=== PATIENT | male | born 2000 | race American Indian/Alaskan Native ===

== ENCOUNTER 2022-04-04 15:01 | Emergency (ER) | payer BC ==
[2022-04-04] MEDS ORDERED: PHENYLEPHRINE 1 MG, SODIUM CHLORIDE P/F VIAL 10 ML 9.9 ML IJ**NOT IV ONE (15:18)
[2022-04-04] MEDS ORDERED: PSEUDOEPHEDRINE 30 MG TAB PO ONE (15:18)
[2022-04-04] MEDS ORDERED: TERBUTALINE 1 MG/1 ML INJ SUB-Q ONE (15:19)
[2022-04-04] MEDS ORDERED: MORPHINE 4 MG/1 ML INJ IV ONE (15:19)
[2022-04-04] MEDS ORDERED: ONDANSETRON 4 MG/2 ML INJ IV ONE (15:19)
--- NOTE | 2022-04-04 16:08 | Emergency Department Report ---
ED Female HPI - General Chief complaint: Abdominal Pain Stated complaint: ABDOMINAL PAIN Time Seen by Provider: 04/04/22 15:18 Source: patient Mode of arrival: Ambulatory Limitations: No Limitations - History of Present Illness Initial comments: 22-year-old male presents to the ED complaining penile erection since around 8 AM this morning. Patient states that around 6 AM this morning he awakened and started to masturbate after his girlfriend refused to have sex with him. Patient states that he went back to sleep and when he awakened he noticed that his penile was partially erect and and had not returned to normal. Patient states that he took a Percocet 10 mg for the pain that was 10 out of 10. Patient states pain is currently a 8 out 10 . He states that he is not fully erect, but is very uncomfortable at present time. Patient is alert and oriented x3. No acute distress noted .no ill appearance noted over the. - Related Data Allergies Allergy/AdvReac Type Severity Reaction Status Date / Time No Known Allergies Allergy Verified 04/04/22 16:00 ED Review of Systems ROS: Stated complaint: ABDOMINAL PAIN Other details as noted in HPI ED Past Medical Hx - Past Medical History Previous Medical History?: No - Surgical History Past Surgical History?: No ED Physical Exam - General Limitations: No Limitations ED Course Vital Signs 04/04/22 15:12 Pulse Rate 87 Respiratory 18 Rate Blood Pressure 122/68 [Left] O2 Sat by Pulse 99 Oximetry Critical care attestation.: If time is entered above; I have spent that time in minutes in the direct care of this critically ill patient, excluding procedure time. ED Disposition Condition: Stable
--- NOTE | 2022-04-04 17:39 | Emergency Department Report ---
ED Male HPI - General Chief complaint: Abdominal Pain Stated complaint: ABDOMINAL PAIN Time Seen by Provider: 04/04/22 15:18 Source: patient Mode of arrival: Ambulatory Limitations: No Limitations - History of Present Illness Initial comments: 22-year-old male presents to the ED complaining penile erection since around 8 AM this morning. Patient states that around 6 AM this morning he awakened and started to masturbate after his girlfriend refused to have sex with him. Patient states that he went back to sleep and when he awakened he noticed that his penile was partially erect and and had not returned to normal. Patient states that he took a Percocet 10 mg for the pain that was 10 out of 10. Patient states pain is currently a 8 out 10 . He states that he is not fully erect, but is very uncomfortable at present time. Patient is alert and oriented x3. No acute distress noted .no ill appearance noted . Patient denies any medical history specifically sickle cell. Patient stated this was the first time this happened. -: This morning Location: penis Radiation: none Severity scale (0 -10): 8 Improves with: none denies other symptoms - Related Data Previous Rx's Medication Instructions Recorded Last Taken Type Pseudoephedrine ER [Sudafed 12 Hr] 120 mg PO BID 15 Days #30 tab 04/04/22 Unknown Rx Allergies Allergy/AdvReac Type Severity Reaction Status Date / Time No Known Allergies Allergy Verified 04/04/22 16:00 ED Review of Systems ROS: Stated complaint: ABDOMINAL PAIN Other details as noted in HPI Constitutional: denies: chills, fever Eyes: denies: eye pain, eye discharge, vision change ENT: denies: ear pain, throat pain Respiratory: denies: cough, shortness of breath, wheezing Cardiovascular: denies: chest pain, palpitations Endocrine: no symptoms reported Gastrointestinal: denies: abdominal pain, nausea, diarrhea Genitourinary: other (erectile penis). denies: urgency, dysuria Musculoskeletal: denies: back pain, joint swelling, arthralgia Skin: denies: rash, lesions Neurological: denies: headache, weakness, paresthesias Psychiatric: denies: anxiety, depression Hematological/Lymphatic: denies: easy bleeding, easy bruising ED Past Medical Hx - Past Medical History Previous Medical History?: No - Surgical History Past Surgical History?: No - Medications Home Medications: Home Medications Medication Instructions Recorded Confirmed Last Taken Type Pseudoephedrine ER [Sudafed 12 Hr] 120 mg PO BID 15 Days #30 tab 04/04/22 Unknown Rx ED Physical Exam - General Limitations: No Limitations General appearance: alert, in no apparent distress - Head Head exam: Present: atraumatic, normocephalic - Eye Eye exam: Present: normal appearance - ENT ENT exam: Present: mucous membranes moist - Neck Neck exam: Present: normal inspection - Respiratory Respiratory exam: Present: normal lung sounds bilaterally. Absent: respiratory distress - Cardiovascular Cardiovascular Exam: Present: regular rate, normal rhythm. Absent: systolic murmur, diastolic murmur, rubs, gallop - GI/Abdominal GI/Abdominal exam: Present: soft, normal bowel sounds - Rectal Rectal exam: Present: deferred - exam: Present: other (erectile penis ) - Extremities Exam Extremities exam: Present: normal inspection - Back Exam Back exam: Present: normal inspection - Neurological Exam Neurological exam: Present: alert, oriented X3 - Psychiatric Psychiatric exam: Present: normal affect, normal mood - Skin Skin exam: Present: warm, dry, intact, normal color. Absent: rash ED Course Vital Signs 04/04/22 15:12 Pulse Rate 87 Respiratory 18 Rate Blood Pressure 122/68 [Left] O2 Sat by Pulse 99 Oximetry ED Medical Decision Making - Medical Decision Making 22-year-old male presents to the ED complaining penile erection since around 8 AM this morning. Patient states that around 6 AM this morning he awakened and started to masturbate after his girlfriend refused to have sex with him. Patient states that he went back to sleep and when he awakened he noticed that his penile was partially erect and and had not returned to normal. Patient states that he took a Percocet 10 mg for the pain that was 10 out of 10. Patient states pain is currently a 8 out 10 . He states that he is not fully erect, but is very uncomfortable at present time. Patient is alert and oriented x3. No acute distress noted .no ill appearance noted over the.Patient denies any medical history specifically sickle cell. Patient stated this was the first time this happened. Physical examination patient is erect he has an erect penis measuring approximately 4 inches. Patient is given morphine 4 mg IV, Zofran 4 mg IV and temporarily sulfate 0.25 mg Sq in the ed. at the time of discharge patient is not erect and states that his penis is that back to baseline size. Rechecked the patient is resting quietly quietly and comfortable and feeling better. I discussed the results of diagnostic study, my clinical impression and the plan for further treatment with the patient. Patient agrees with plan and discharge at this present time. All question addressed. I have given the patient instruction regarding a diagnosis ,expectation ,follow- up and return precaution. I explained to the patient that emergent condition may arise and to return to the ED for new worsen and any new persisting condition. I have explained the importance of following up with the primary care physician or referral physician listed below has instructed. The patient verbalized understanding of discharge instruction. Critical care attestation.: If time is entered above; I have spent that time in minutes in the direct care of this critically ill patient, excluding procedure time. ED Disposition Clinical Impression: Priapism Disposition: 01 HOME / SELF CARE / HOMELESS Is pt being admited?: No Does the pt Need Aspirin: No Condition: Stable Instructions: Priapism Additional Instructions: Do not have sex for 24 hours Follow-up with primary care doctor for sickle cell trait screening If this ever occurs again please take Sudafed immediately and return to the ED Return to ED for any worsening symptom Prescriptions: Pseudoephedrine ER [Sudafed 12 Hr] 120 mg PO BID 15 Days #30 tab Referrals: [facility] [Provider Group] - 3-5 Days PRIMARY CARE, [Primary Care Provider] - 3-5 Days Forms: Work/School Release Form(ED)
[2022-04-04 18:38] VITALS: BP 128/96
== END 2022-04-04 18:34 | disposition home or self-care (01) ==
LOC: ED 15:01
DX: N48.30 Priapism, unspecified (principal)
CPT/HCPCS: 96372; 96374; 96375; 99282; J2270; J2405; J3105